=== PATIENT | male | born 1945 | race Caucasian/White ===

== ENCOUNTER 2020-10-22 04:29 | Inpatient (IN) | payer MEDICARE, MEDICAID, SELFPAY ==
[2020-10-22] VITALS (97 sets, daily range): BP systolic 72–147; BP diastolic 48–92; PULSE 75–117; RESP 0–33; TEMP 36.7–36.8; O2SAT 90–100; BMI 18.6; BMI 17.2
--- NOTE | 2020-10-22 04:39 | XRR_ITS ---
PROCEDURE INFORMATION: Exam: XR Chest, 1 View Exam date and time: 10/22/2020 4:58 AM Age: 75 years old Clinical indication: Dyspnea; Prior surgery; Surgery date: 6+ months; Surgery type: Heart stents; Additional info: SOB TECHNIQUE: Imaging protocol: XR of the chest Views: 1 view. COMPARISON: No relevant prior studies available. FINDINGS: Lungs: There is a background of centrilobular emphysema and bronchiectasis. Calcified granulomas are seen in the hemithoraces bilaterally. Some subtle ground-glass opacities are seen in the right lung base likely representing pulmonary fibrosis. Patch there is dense consolidation seen within the left mid and lower hemithorax, findings that may represent pneumonia although underlying soft tissue masses cannot be excluded. Pleural space: Unremarkable. No pleural effusion. No pneumothorax. Heart/Mediastinum: Unremarkable. No cardiomegaly. Bones/joints: Unremarkable. XR/XR chest 1V portable [id number] IMPRESSION: 1. There is a background of centrilobular emphysema and bronchiectasis. Calcified granulomas are seen in the hemithoraces bilaterally. 2. Irregular areas of consolidation seen in the left mid and lower hemithorax, findings that may represent pneumonia although underlying soft tissue attenuation masses cannot be excluded.
--- NOTE | 2020-10-22 04:40 | ECG_ITS ---
[facility] Test Date: 2020-10-22 Pat Name: Jacinto Choe Department: Room: Gender: Male [employer]: : 1945 Requested By: Niels Flores Order Number: [id number] Reading MD: EVAN ACEVEDO Measurements Intervals Harts Rate: 94 P: 81 WY: 200 QRS: 55 QRSD: 102 T: 129 QT: 358 QTc: 450 Interpretive Statements SINUS RHYTHM ST DEVIATION AND MODERATE T-WAVE ABNORMALITY, CONSIDER LATERAL ISCHEMIA [-0.1+ mV T WAVE IN I/aVL/V5/V6] Compared to ECG 11/10/2016 07:30:37 Sinus bradycardia no longer present First degree AV block no longer present Myocardial infarct finding no longer present T-wave abnormality still present Possible ischemia still present Electronically Signed On 10-22-2020 20:13:57 LAWYER by EVAN ACEVEDO [id number] f
[2020-10-22] MEDS: FUROsemide 10 mg/mL SDV 10mL 60 MG IVP (04:44)
[2020-10-22] MEDS: nitroglycerin 1 gm/inch oint Pkt 0.5 INCH TOPICAL (04:45)
--- NOTE | 2020-10-22 04:46 | ED_ITS ---
HPI - SOB/Dyspnea General: Chief Complaint: Shortness of Breath/Dyspnea Stated Complaint: Nosebleed/Coughing up Blood Time Seen by Provider: 10/22/20 04:31 History of Present Illness: HPI Narrative: 75-year-old male with a history of coronary disease presents with acute onset of shortness of breath. He notes he has been coughing, but has had no fever. This is worsened over a couple of days. He believes his nose began to bleed last evening around 10 PM, and got worse. There is no nosebleeding now. He is coughing up some bright red blood. He notes that his chest has been rattly. He also notes that his feet have been more swollen lately. MD elicited complaint: shortness of breath and cough Pertinent past history: other Onset (ago): day(s) Timing: constant and progressively worsening Severity: moderate Exacerbating factors: exertion and movement Relieving factors: nothing Known history of: other Associated symptoms: Reports chest congestion, chest pain, cough and hemoptysis; Deny diaphoresis, dizziness, fever(s), nausea or vomiting Treatment prior to arrival: oxygen Review of Systems Const: Denies: fever(s) or diaphoresis Eyes: Denies: change in vision ENMT: Reports: epistaxis, post nasal drip and sinus pain; Denies: odynophagia or swelling of lips/tongue Card: Reports: chest pain Resp: Reports: hemoptysis and chest congestion GI: Denies: nausea or vomiting : Denies: difficulty urinating, dysuria or hematuria Musc: Denies: neck pain Skin/Breast: Denies: rash or erythema Neuro: Denies: headache(s) or dizziness Psych: Denies: anxiety PFSH ED PFSH: Medical History (Updated 10/22/20 @ 06:04 by Niels Godinez DO) Alcohol abuse COPD (chronic obstructive pulmonary disease) Dyslipidemia HTN (hypertension) Myocardial infarction Being managed medically, November 08, [address] 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: [employer] Physical Exam Const: GENERAL APPEARANCE: well developed ORIENTATION/CONSCIOUSNESS: Yes oriented to person, Yes oriented to place and Yes oriented to time HENMT: COMMON NORMALS: normocephalic and external ears normal HEAD & SCALP: normocephalic FACE & SINUS: normal facial exam NOSE: Nasal discharge present bloody (thin. ) and Epistaxis present (currently stopped) EXTERNAL EAR: Yes external ears normal MOUTH: tongue normal Eye: COMMON NORMALS: Equal, round and reactive pupils present, EOMs intact bilaterally and conjunctivae normal EYELID: eyelids normal CONJUNCTIVA: Yes conjunctivae normal PUPIL: Yes Equal, round and reactive pupils present Neck/C-Spine: GENERAL: No tracheal deviation Chest: COMMONS NORMALS: normal inspection of the chest CHEST: No tenderness Resp: EFFORT & INSPECTION: Yes tachypneic, Yes respiratory distress, No retractions, No uses accessory muscles and No tracheal deviation AUSCULTATION: rales (profound) bilateral, no rhonchi, no wheezes and lung sounds not diminished Cardio: COMMON NORMALS: regular rate and regular rhythm RATE: regular rate RHYTHM: regular rhythm HEART SOUNDS: no murmurs PERIPHERAL PULSES: radial pulses present GI: INSPECTION: No abdominal distension AUSCULTATION: No Hyperactive bowel sounds present and No Hypoactive bowel sounds present PALPATION: No Guarding due to palpation present (GI) and No Rigid due to palpation PERCUSSION: no dullness to percussion and no tympanic to percussion Neuro: SENSORIUM/ORIENTATION: Yes oriented to person, Yes oriented to place and Yes oriented to time Psych: COMMON NORMALS: mental status grossly normal Skin: COMMON NORMALS: no rashes or lesions noted GENERAL SKIN EXAM: no rashes or lesions noted Course Consultations: Consultation #1: hubert Time: 06:01 Vital Signs: Vital signs: Vital Signs Temperature 98.0 F 10/22/20 04:38 Pulse Rate 117 H 10/22/20 05:57 Respiratory Rate 27 H 10/22/20 05:57 Blood Pressure 137/84 10/22/20 05:57 Pulse Oximetry 93 10/22/20 05:57 MDM - SOB/Dyspnea MDM Narrative: Medical decision making narrative: 75-year-old male presents in respiratory failure. He has tachypnea, low O2 sat on 4 L. He is improved on 10 L oxygen mask. Heart rates 100-1 10. Blood pressure 134/88. Clinically he sounds wet on exam. He has a dense left lower lobe pneumonia by chest x-ray. White blood cell count 12. His lactic acid is minimally elevated, his hemoglobin is 8.3. CTA read is pending. He will go to the ICU for hypoxic respiratory failure and pneumonia. He was not given fluids, as clinically he was fluid overloaded. He did receive Rocephin and Zithromax. Lab Data: Labs: Lab Results 10/22/20 10/22/20 10/22/20 Range/Units 04:39 04:40 04:40 WBC 12.2 H (4.0-10.0) 10^3/ uL RBC 3.02 L (4.1-5.3) 10^6/u L Hgb 8.3 L (11.7-16.6) g/dL Hct 26.4 L (42.0-52.0) % MCV 87.4 (80-94) fL MCH 27.5 L (28.0-34.0) pg MCHC 31.4 (30.0-36.0) g/dL RDW 16.7 H (12.1-15.1) % Plt Count 466 H (130-400) 10^3/c mm MPV 8.9 (7.4-10.4) fL Neut % (Auto) 73.7 % Lymph % (Auto) 19.2 % [place] % (Auto) 6.2 % Eos % (Auto) 0.1 % Baso % (Auto) 0.3 % Neut # (Auto) 9.01 H (1.8-7.7) 10^3/u L Lymph # (Auto) 2.4 (0.8-4.8) 10^3/u L [place] # (Auto) 0.8 (0.2-0.9) 10^3/u L Eos # (Auto) 0.0 (0.0-0.8) 10^3/u L Baso # (Auto) 0.0 (0.0-0.1) 10^3/u L Nucleated RBC % (a uto) 0 % Nucleated RBCs # 0.0 /100WBC D-Dimer 1.25 H (0-0.59) ug/mIFE U Specimen Type Arterial Sample Site Brachial, right ABG pH 7.40 (7.35-7.45) ABG pCO2 34.6 L (35-45) mmHg ABG pO2 69.5 L (80.0-100.0) mmH g ABG HCO3 21.4 L (22-26) mmol/L ABG Base Excess -3.0 L (-2.0-2.0) mmol/ L Bogdan Test N/a Hematocrit 25.7 L (42-52) % Hgb O2 Saturation 91.1 L (95-100) % Carboxyhemoglobin 2.6 (0.4-20.1) %THgb Methemoglobin 0.9 (0.4-1.5) % Total Hemoglobin 8.4 L (14-18) g/dL O2 Delivery Device Oxy mask O2 Liters/Min 15.0 % Finishing Manager ID Harkr Sodium (136-145) mmol/L Potassium (3.5-5.1) mmol/L Chloride (98-107) mmol/L Carbon Dioxide (22-29) mmol/L Anion Gap (5-19) BUN (8-23) mg/dL Creatinine (0.7-1.2) mg/dL GFR Calculation Glucose (65-115) mg/dL Calculated Osmolal ity (285-295) mOsm/k g Lactic Acid (0.5-2.2) mmol/L Calcium (8.5-10.5) mg/dL Total Bilirubin (0.15-1.2) mg/dL AST (0-40) U/L ALT (0-41) U/L Alkaline Phosphata se (40-130) IU/L Troponin T Baselin e (0-15) ng/L NT-Pro-B Natriuret Pep (0-450) pg/mL Total Protein (6.6-8.7) g/dL Albumin (3.5-5.2) g/dL Globulin (1.3-4.6) g/dL SARS-CoV-2 Ag (Rap id) (Negative) 10/22/20 10/22/20 10/22/20 Range/Units 04:40 04:40 04:40 WBC (4.0-10.0) 10^3/ uL RBC (4.1-5.3) 10^6/u L Hgb (11.7-16.6) g/dL Hct (42.0-52.0) % MCV (80-94) fL MCH (28.0-34.0) pg MCHC (30.0-36.0) g/dL RDW (12.1-15.1) % Plt Count (130-400) 10^3/c mm MPV (7.4-10.4) fL Neut % (Auto) % Lymph % (Auto) % [place] % (Auto) % Eos % (Auto) % Baso % (Auto) % Neut # (Auto) (1.8-7.7) 10^3/u L Lymph # (Auto) (0.8-4.8) 10^3/u L [place] # (Auto) (0.2-0.9) 10^3/u L Eos # (Auto) (0.0-0.8) 10^3/u L Baso # (Auto) (0.0-0.1) 10^3/u L Nucleated RBC % (a uto) % Nucleated RBCs # /100WBC D-Dimer (0-0.59) ug/mIFE U Specimen Type Sample Site ABG pH (7.35-7.45) ABG pCO2 (35-45) mmHg ABG pO2 (80.0-100.0) mmH g ABG HCO3 (22-26) mmol/L ABG Base Excess (-2.0-2.0) mmol/ L Bogdan Test Hematocrit (42-52) % Hgb O2 Saturation (95-100) % Carboxyhemoglobin (0.4-20.1) %THgb Methemoglobin (0.4-1.5) % Total Hemoglobin (14-18) g/dL O2 Delivery Device O2 Liters/Min % Finishing Manager ID Sodium 128 L (136-145) mmol/L Potassium 4.4 (3.5-5.1) mmol/L Chloride 96 L (98-107) mmol/L Carbon Dioxide 23 (22-29) mmol/L Anion Gap 13.4 (5-19) BUN 6 L (8-23) mg/dL Creatinine 0.5 L (0.7-1.2) mg/dL GFR Calculation Not Reportable Glucose 156 H (65-115) mg/dL Calculated Osmolal ity 267 L (285-295) mOsm/k g Lactic Acid 2.3 H (0.5-2.2) mmol/L Calcium 8.6 (8.5-10.5) mg/dL Total Bilirubin 0.3 (0.15-1.2) mg/dL AST 16 (0-40) U/L ALT 11 (0-41) U/L Alkaline Phosphata se 147 H (40-130) IU/L Troponin T Baselin e 93 H (0-15) ng/L NT-Pro-B Natriuret Pep 2593 H (0-450) pg/mL Total Protein 6.8 (6.6-8.7) g/dL Albumin 3.0 L (3.5-5.2) g/dL Globulin 3.8 (1.3-4.6) g/dL SARS-CoV-2 Ag (Rap id) (Negative) 10/22/20 Range/Units 05:15 WBC (4.0-10.0) 10^3/ uL RBC (4.1-5.3) 10^6/u L Hgb (11.7-16.6) g/dL Hct (42.0-52.0) % MCV (80-94) fL MCH (28.0-34.0) pg MCHC (30.0-36.0) g/dL RDW (12.1-15.1) % Plt Count (130-400) 10^3/c mm MPV (7.4-10.4) fL Neut % (Auto) % Lymph % (Auto) % [place] % (Auto) % Eos % (Auto) % Baso % (Auto) % Neut # (Auto) (1.8-7.7) 10^3/u L Lymph # (Auto) (0.8-4.8) 10^3/u L [place] # (Auto) (0.2-0.9) 10^3/u L Eos # (Auto) (0.0-0.8) 10^3/u L Baso # (Auto) (0.0-0.1) 10^3/u L Nucleated RBC % (a uto) % Nucleated RBCs # /100WBC D-Dimer (0-0.59) ug/mIFE U Specimen Type Sample Site ABG pH (7.35-7.45) ABG pCO2 (35-45) mmHg ABG pO2 (80.0-100.0) mmH g ABG HCO3 (22-26) mmol/L ABG Base Excess (-2.0-2.0) mmol/ L Bogdan Test Hematocrit (42-52) % Hgb O2 Saturation (95-100) % Carboxyhemoglobin (0.4-20.1) %THgb Methemoglobin (0.4-1.5) % Total Hemoglobin (14-18) g/dL O2 Delivery Device O2 Liters/Min % Finishing Manager ID Sodium (136-145) mmol/L Potassium (3.5-5.1) mmol/L Chloride (98-107) mmol/L Carbon Dioxide (22-29) mmol/L Anion Gap (5-19) BUN (8-23) mg/dL Creatinine (0.7-1.2) mg/dL GFR Calculation Glucose (65-115) mg/dL Calculated Osmolal ity (285-295) mOsm/k g Lactic Acid (0.5-2.2) mmol/L Calcium (8.5-10.5) mg/dL Total Bilirubin (0.15-1.2) mg/dL AST (0-40) U/L ALT (0-41) U/L Alkaline Phosphata se (40-130) IU/L Troponin T Baselin e (0-15) ng/L NT-Pro-B Natriuret Pep (0-450) pg/mL Total Protein (6.6-8.7) g/dL Albumin (3.5-5.2) g/dL Globulin (1.3-4.6) g/dL SARS-CoV-2 Ag (Rap id) Negative (Negative) Discharge Plan Discharge Patient Disposition: Admitted As Inpatient Clinical Impression: Pneumonia Qualifiers: Pneumonia type: due to unspecified organism Laterality: left Lung location: lower lobe of lung Qualified Code(s): J18.9 - Pneumonia, unspecified organism Sepsis Qualifiers: Sepsis type: sepsis due to unspecified organism Sepsis acute organ dysfunction status: with acute organ dysfunction Severe sepsis acute organ dysfunction type: acute respiratory failure Acute respiratory failure type: with hypoxia Severe sepsis shock status: without septic shock Qualified Code(s): A41.9 - Sepsis, unspecified organism Respiratory failure Qualifiers: Chronicity: acute Respiratory failure complication: hypoxia Qualified Code(s): J96.01 - Acute respiratory failure with hypoxia Condition: Stable Coding Level of Care Code ED [employer] [facility] Fwd Exam Comprehensive
[2020-10-22 04:47] LABS: ABG PCO2 34.6 mmHg (35-45); Arterial Blood Gas Hematocrit 25.7 % (42-52); Blood Gas Sample Type Arterial; Carboxyhemoglobin 2.6 %THgb (0.4-20.1); HCO3 ABG 21.4 mmol/L (22-26); HGB O2 Sat 91.1 % (95-100); Methemoglobin 0.9 % (0.4-1.5); PO2 ABG 69.5 mmHg (80.0-100.0); Total Hemoglobin 8.4 g/dL (14-18)
[2020-10-22 04:48] LABS: Blood Gas Operator Identificat HARKR; Blood Gas Sample Site Brachial, right; Oxygen Device OXY MASK
[2020-10-22 04:57] LABS: Basophils % 0.3 %; Eosinophils % 0.1 %; Hematocrit 26.4 % (42.0-52.0); Hemoglobin 8.3 g/dL (11.7-16.6); Lymphocytes # 2.4 10^3/uL (0.8-4.8); Lymphocytes % 19.2 %; Mean Corpuscular HGB Conc 31.4 g/dL (30.0-36.0); Mean Corpuscular Hemoglobin 27.5 pg (28.0-34.0); Mean Corpuscular Volume 87.4 fL (80-94); Mean Platelet Volume 8.9 fL (7.4-10.4); Monocytes # 0.8 10^3/uL (0.2-0.9); Monocytes % 6.2 %; Neutrophils # 9.01 10^3/uL (1.8-7.7); Neutrophils % 73.7 %; Nucleated Red Blood Cells % 0 %; Platelet Count 466 10^3/cmm (130-400); Red Blood Count 3.02 10^6/uL (4.1-5.3); Red Cell Distribution Width 16.7 % (12.1-15.1); White Blood Count 12.2 10^3/uL (4.0-10.0)
[2020-10-22 05:07] LABS: D Dimer 1.25 ug/mIFEU (0-0.59)
[2020-10-22] MEDS: cefTRIAXone 1,000 MG in sodium chloride 0.9% (plus) 50 ML 100 MG IV (05:15)
--- NOTE | 2020-10-22 05:18 | CTR_ITS ---
PROCEDURE INFORMATION: Exam: CT Angiography Chest With Contrast Exam date and time: 10/22/2020 5:30 AM Age: 75 years old Clinical indication: Abnormal findings; Abnormal diagnostic tests; Elevated d-dimer; Dyspnea; Prior surgery; Surgery date: 6+ months; Surgery type: Heart stents; Additional info: SOB, elevated d dimer TECHNIQUE: Imaging protocol: Computed tomographic angiography of the chest with intravenous contrast. 3D rendering (Not supervised by radiologist): MIP and/or 3D reconstructed images were created by the technologist. Radiation optimization: All CT scans at this facility use at least one of these dose optimization techniques: automated exposure control; mA and/or kV adjustment per patient size (includes targeted exams where dose is matched to clinical indication); or iterative reconstruction. Contrast material: OMNI 350; Contrast volume: 95 ml; Contrast route: INTRAVENOUS (IV); COMPARISON: CR (CHEST, ) 10/22/2020 4:45 AM RADIATION DOSE METRICS: Total DLP (mGy-cm): 540.68 FINDINGS: Pulmonary arteries: Normal. No pulmonary emboli. Aorta: Unremarkable. No aortic aneurysm. No aortic dissection. Lungs: Prominent calcifications are seen within the lungs bilaterally compatible calcified granulomas. The largest is seen in the left upper lobe anteriorly measuring 12 mm. There is a background of severe centrilobular emphysema. There is a spiculated soft tissue attenuation mass present within the left upper lobe adjacent to the major fissure measuring 3.6 x 2.8 x 4.0 cm. There is distortion the major fissure, finding that raises additional suspicion for a primary pulmonary malignancy. There is a rounded area area of consolidation seen within the left upper lobe as well measuring 6.9 x 6.4 x 5.2 cm. Although this may represent rounded pneumonia, an underlying pulmonary malignancy cannot be excluded. Pleural space: Reticular and strandy opacities surround the rounded mass likely representing parenchymal and pleural scarring. Ground-glass opacities are seen in the lung bases bilaterally. This likely represents pulmonary fibrosis although superimposed pneumonitis cannot be excluded. Heart: Unremarkable. No cardiomegaly. No pericardial effusion. Lymph nodes: Unremarkable. No enlarged lymph nodes. Gallbladder and bile ducts: Punctate calcifications are seen in the dependent portion of gallbladder compatible with gallstones. Kidneys and ureters: There is hydronephrosis and hydroureter seen on the left. Bones/joints: There is an S-shaped curvature of the axial skeleton. Soft tissues: Unremarkable. CT/CT angio chest PE protcl [id number] IMPRESSION: 1. Severe centrilobular emphysema. 2. There are 2 soft tissue attenuation masses present within the left upper lobe suspicious for pulmonary malignancy. Highly suspicious nodule(s). Consider PET/CT, or tissue sampling.(Reference: Alberto) 3. Diffuse reticular opacities are present within the left hemithorax likely representing combined pleural and parenchymal scarring. Ground-glass opacities are seen in the lower hemithoraces bilaterally likely representing pulmonary fibrosis although superimposed basilar pneumonitis cannot be excluded as well. 4. Left hydronephrosis and hydroureter. 5. Tiny gallstones without evidence of cholecystitis REFERENCES: Alberto Rich, et al. Guidelines for Management of Incidental Pulmonary Nodules Detected on CT Images: From the Fleischner Society 2017. Radiology. 2017;284(1):228-243. Radiation Dose CTDIVOL = (mGy): DLP = 540.68 (mGy-cm)
[2020-10-22 05:19] LABS: Lactic Sepsis W/Reflex 2.3 mmol/L (0.5-2.2)
[2020-10-22 05:20] LABS: Troponin(5th) Baseline 93 ng/L (0-15)
[2020-10-22] MEDS: azithromycin 500 MG in sodium chloride 0.9% 250 ML 250 MG IV (05:22)
[2020-10-22 05:26] LABS: Alanine Aminotransferase 11 U/L (0-41); Alkaline Phosphatase 147 IU/L (40-130); Anion Gap 13.4 (5-19); Aspartate Amino Transferase 16 U/L (0-40); Blood Urea Nitrogen 6 mg/dL (8-23); Calcium 8.6 mg/dL (8.5-10.5); Carbon Dioxide 23 mmol/L (22-29); Chloride 96 mmol/L (98-107); Creatinine Clr Calc Pharmacy 64.4952; Globulin 3.8 g/dL (1.3-4.6); Glucose 156 mg/dL (65-115); NT Pro B Type Natriuretic Pept 2593 pg/mL (0-450); Osmolality Calculated 267 mOsm/kg (285-295); Potassium 4.4 mmol/L (3.5-5.1); Sodium 128 mmol/L (136-145); Total Bilirubin 0.3 mg/dL (0.15-1.2); Total Protein 6.8 g/dL (6.6-8.7)
[2020-10-22 05:43] LABS: SARS Covid-2 Antigen Negative (Negative)
[2020-10-22] MEDS: iohexol 350 mg/mL 100 mL Btl IV (05:52)
--- NOTE | 2020-10-22 05:56 | PM.HP ---
Providers/Chief Complaint Primary Care Provider: Jude Boucher Chief Complaint: nose bleed History of Present Illness Jacinto Choe is a 75 year old male who carries history of established coronary disease, nonoxygen dependent COPD, hypertension, active smoker who presented with chief complaint of hemoptysis and chest pain. Patient is stating that he has been having on and off chest pain on exertion, he describing chest pain is excruciating pain more than 10 associated with orthopnea, PND, shortness of breath, chest pain gets relieved with rest and taking nitro at home. Last 48 hours he has been noticing worsening of his symptoms, he is getting more short of breath, Friday morning he also started noticing hemoptysis and epistaxis. Because of the symptoms he decided to come to the hospital for further evaluation. Diagnostics in the ER revealed tachycardia, tachypnea, hypoxic respiratory failure requiring 10 L oxygen mask, CT chest revealed 3 x 2 x 4 cm mass and another rounded area of consolidation in left upper lobe 6 x 6 x 5 cm. Troponin high no active chest pain EKG is showing T wave inversion lateral leads which is chronic, awaiting second hour troponin, high D-dimer noticed. He received ceftriaxone and azithromycin in the ER and Lasix dose. Review of Systems Const: Reports: chills, body aches, change in appetite, fatigue and malaise; Denies: fever(s) Eyes: Denies: change in vision ENMT: Reports: throat pain and bleeding gums Card: Reports: chest pain, swelling of feet/ankles, dyspnea on exertion and orthopnea Resp: Reports: dyspnea, productive cough and hemoptysis GI: Denies: abdominal pain : Denies: flank pain Musc: Denies: neck pain Skin/Breast: Reports: lesions Neuro: Denies: headache(s) Psych: Denies: anxiety Endo: Denies: polyuria Oliver/Lymph: Denies: easy bruising All/Imm: Denies: urticaria Medications/Allergies Home Medications Medication Instructions Recorded Confirmed Last Taken Type isosorbide mononitrate 30 mg 30 mg PO DAILY #90 tab 12/15/19 05/02/20 Unknown Rx tablet,extended release 24 hr nitroglycerin 0.4 mg sublingual 0.4 mg SUBLINGUAL Q5M PRN 90 Days 12/27/19 05/02/20 Unknown Rx tablet #25 tab aspirin 81 mg tablet,delayed 81 mg PO DAILY 05/01/20 05/02/20 Unknown History release lisinopril 10 mg tablet 5 mg PO DAILY PRN tab 05/02/20 05/02/20 Unknown History Allergies Allergy/AdvReac Type Severity Reaction Status Date / Time No Known Allergies Allergy Unverified 12/13/19 13:28 PFSH Acute PFSH: Medical History Alcohol abuse COPD (chronic obstructive pulmonary disease) Dyslipidemia HTN (hypertension) Myocardial infarction Being managed medically, November 08, [address] 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: [employer] Vitals/I&O/Wt Last Vital Signs Temp 98.0 F 10/22/20 04:38 Pulse 95 10/22/20 05:15 Resp 26 H 10/22/20 05:15 BP 147/84 10/22/20 05:15 Pulse Ox 96 10/22/20 05:15 Weight last 48 hrs Weight 58.967 kg Physical Exam Narrative: EXAM NARRATIVE: Frail elderly male very pleasant to communicate Currently saturating well on 2 L oxygen mask Cachectic malnourished appearance Audible wheezing S1, S2 sinus tachycardia with clinical signs of fluid overload Lower extremity 2+ pitting edema left leg swollen greater than right Abdomen soft nontender bowel sound present Bronchial breath sounds left greater than right adventitious sounds positive with crackles and wheezing Experiencing active hemoptysis, he spat almost 10 to 15 mL in the bucket Awake alert oriented x3 GCS 15 no neurological deficit Appropriate mood and affect Data : 10/22/20 04:40 10/22/20 04:40 Micro: Microbiology 10/22/20 04:40 Blood Culture - Preliminary Blood SPECIMEN COLLECTED 10/22/20 04:40 Blood Culture - Preliminary Blood SPECIMEN COLLECTED A&P Assessment and plan (1) Community acquired pneumonia: Status: Acute (2) Sepsis: Status: Acute (3) Acute and chronic respiratory failure with hypoxia: Status: Acute (4) Hyponatremia: Status: Acute (5) Lung mass: Status: Acute (6) Hemoptysis: Status: Acute (7) Pneumonia: Status: Acute Qualifiers: Laterality: left Lung location: lower lobe of lung Pneumonia type: due to unspecified organism Qualified Code(s): J18.9 - Pneumonia, unspecified organism (8) Sepsis: Status: Acute Qualifiers: Acute respiratory failure type: with hypoxia Sepsis acute organ dysfunction status: with acute organ dysfunction Sepsis type: sepsis due to unspecified organism Severe sepsis acute organ dysfunction type: acute respiratory failure Severe sepsis shock status: without septic shock Qualified Code(s): A41.9 - Sepsis, unspecified organism; R65.20 - Severe sepsis without septic shock; J96.01 - Acute respiratory failure with hypoxia (9) Respiratory failure: Status: Acute Qualifiers: Chronicity: acute Respiratory failure complication: hypoxia Qualified Code(s): J96.01 - Acute respiratory failure with hypoxia (10) Tobacco abuse: Status: Acute Additional A&P Information Active hemoptysis Cachectic appearance, malnourished, concern for malignancy patient smokes 1 pack/day, spiculated mass seen, postobstructive pneumonia I would start him on vancomycin and Zosyn considering emphysematous severe COPD changes of lung parenchyma DuoNeb Avoid anticoagulants Will need histopathological diagnosis bronchoscopy and bronchoalveolar lavage for active complaints Sepsis due to community-acquired pneumonia Sepsis criteria met with leukocytosis, lactic acidemia, tachypnea, tachycardia Would use vancomycin and Zosyn considering emphysematous severe COPD lung parenchyma and concern for lung cancer We will check Legionella and urine antigen Acute hypoxic respiratory failure Requiring 10 L oxygen mask Active hemoptysis with pneumonia and lung mass has high risk of mortality morbidity Currently not complaining of active chest pain, no active. Respiratory sensory muscle, would prefer to monitor in ICU Congestive heart failure exacerbation Has orthopnea, PND clinical signs of fluid overload, would use Lasix IV every 12 Echo in the morning Abnormal D-dimer and troponin Patient has severe coronary artery disease history not a candidate for anticoagulation due to hemoptysis Previously he was managed medically for severe calcified coronary artery disease No PE identified on CTA chest I believe high D-dimer secondary to malignancy Hyponatremia My suspicion is high for squamous cell cancer which can present with hemoptysis spiculated mass and hyponatremia Clinically he is fluid overloaded, continue Lasix Full code N.p.o. DVT prophylaxis SCDs Attestations Medical Necessity Statement*: Anticipating stay in the hospital course more than 2 midnights because of hypoxic respiratory failure CHF exacerbation, pneumonia and malignancy, hemoptysis Time Spent in Patient Care: (>than 50% of time spent in counselling and/or direct pt care on unit). 50mins Coding Level of Care Code Acute Desk Monitor for g Fwd Diagnoses Community acquired pneumonia J18.9 Sepsis A41.9 Acute and chronic respiratory failure with hypoxia J96.21 Hyponatremia E87.1 Lung mass R91.8 Hemoptysis R04.2 Pneumonia J18.9 Laterality: left Lung location: lower lobe of lung Pneumonia type: due to unspecified organism Sepsis A41.9; R65.20; J96.01 Acute respiratory failure type: with hypoxia Sepsis acute organ dysfunction status: with acute organ dysfunction Sepsis type: sepsis due to unspecified organism Severe sepsis acute organ dysfunction type: acute respiratory failure Severe sepsis shock status: without septic shock Respiratory failure J96.01 Chronicity: acute Respiratory failure complication: hypoxia Tobacco abuse Z72.0
[2020-10-22 06:40] LABS: Reflex Lactate Order REFLEX LACTIC ORDERD
--- NOTE | 2020-10-22 06:40 | ECG_ITS ---
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
--- NOTE | 2020-10-22 07:21 | PC.NURSE ---
To ICU 0710 via stretcher by RAMÍREZ Null. VSS, AAOx3, oxymask 10L on. Dried blood to nares and lips.
--- NOTE | 2020-10-22 07:23 | USCV_ITS ---
Jacinto Choe Age: 75 Gender: M : 1945 Exam Date: 10/22/2020 09:19 Ordering Phys: Alfred Fabian MD Technologist: Lashon Frias [place] [facility] [place]: [place] BP: 114 / 67 HR: 80 Rhythm: Sinus Technical Quality: Fair MEASUREMENTS (Male / Female) Normal Values 2D ECHO LV Diastolic Diameter PLAX 4.5 cm 4.2 - 5.9 / 3.9 - 5.3 cm LV Systolic Diameter PLAX 2.8 cm LV Chamber Size 4.3 cm IVS Diastolic Thickness 1.3 cm 0.6 - 1.0 / 0.6 - 0.9 cm IVS Systolic Thickness 1.8 cm LVPW Diastolic Thickness 1.0 cm 0.6 - 1.0 / 0.6 - 0.9 cm LVPW Systolic Thickness 1.3 cm RV Chamber Size 2.8 cm LVOT Diameter 2.1 cm LV Ejection Fraction MOD 2C 30.5 % LV Ejection Fraction 2C AL 28.9 % LA Diameter 3.5 cm LA Width 2.6 cm LA Height 5.4 cm RA Width 2.9 cm RA Height 4.8 cm Aorta at Sinotubular Diameter 3.0 cm M-MODE LV Diastolic Diameter MM 4.9 cm 4.2 - 5.9 / 3.9 - 5.3 cm LV Systolic Diameter MM 3.8 cm LV Ejection Fraction MM Teich 47.1 % IVS Diastolic Thickness MM 0.6 cm 0.6 - 1.0 / 0.6 - 0.9 cm IVS Systolic Thickness MM 0.9 cm LVPW Diastolic Thickness MM 1.0 cm 0.6 - 1.0 / 0.6 - 0.9 cm LVPW Systolic Thickness MM 1.7 cm Aortic Annulus Diameter 3.4 cm LA Ao Ratio MM 1.2 MV E Point Septal Separation 1.3 cm DOPPLER AV Peak Velocity 120.0 cm/s LVOT Peak Velocity 91.0 cm/s AV Area Cont Eq vti 2.5 cm squared AV Area Cont Eq pk 2.6 cm squared MV Peak Velocity 110.0 cm/s MV Area PHT 4.8 cm squared MV E' Velocity 111.0 cm/s TV Peak E Velocity 32.0 cm/s Right Atrial Pressure 8.0 mmHg PV Peak Velocity 73.0 cm/s RV Acceleration Time 0.1 s RV Ejection Time 0.3 s RV AcT/ET 0.3 FINDINGS Left Ventricle Normal left ventricular cavity size. Severely decreased left ventricular systolic function. Left ventricular ejection fraction is estimated at 35 %. There is global hypokinesis with regional mid to distal anterior, apical and distal lateral wall akinesis. The presence of atrial fibrillation diastolic function cannot be assessed accurately. Right Ventricle The right ventricle is normal in size and function. RVSP could not be calculated due to incomplete tricuspid regurgitation velocity profile. Right Atrium The right atrium is normal in size. Left Atrium The left atrium is normal in size. Mitral Valve Structurally normal mitral valve without significant stenosis or prolapse. There is no mitral regurgitation. Aortic Valve Moderate aortic valve calcification. No aortic valve stenosis. No aortic valve regurgitation. Tricuspid Valve Structurally normal tricuspid valve without significant stenosis or regurgitation. Pulmonary artery systolic pressure is normal. Pulmonic Valve Structurally normal pulmonic valve without significant stenosis. There is no pulmonic regurgitation. Pericardium Normal pericardium without effusion. Aorta Normal ascending aorta dimension. CONCLUSIONS 1-Normal left ventricular cavity size. Severely decreased left ventricular systolic function. Left ventricular ejection fraction is estimated at 35 %. There is global hypokinesis with regional mid to distal anterior, apical and distal lateral wall akinesis. The presence of atrial fibrillation diastolic function cannot be assessed accurately. 2-There is no pericardial effusion. 3-No significant valve abnormalities. 4-Right atrial pressure is around 5 mm of mercury. 5-There are no prior echocardiogram studies to compare. Alfred Paris MD (Electronically Signed) Final Date: 22 October 2020 17:09 S
[2020-10-22] MEDS: isosorbide mononitrate ER 30 mg Tablet PO (08:37)
[2020-10-22] MEDS: vancomycin 1,000 MG in sodium chloride 0.9% 250 ML 250 MG IV (08:37)
[2020-10-22] MEDS: potassium chloride ER 20 mEq Tablet PO (08:37)
[2020-10-22] MEDS: FUROsemide 10 mg/mL SDV 4mL 40 MG IVP (08:38)
[2020-10-22] MEDS: piperacillin-tazobactam 3.375 GM in sodium chloride 0.9% (plus) 50 ML IV ×2 (10:05→19:02)
[2020-10-22 11:37] LABS: Troponin 5 6HR 155.7 ng/L (0-15)
[2020-10-22 11:38] LABS: Troponin 5 6HR Delta 62.7 ng/L (0-12)
--- NOTE | 2020-10-22 14:00 | PC.NURSE ---
Daughter Tricia Tijerina [phone] called for update. Update given. Pneumonia, lung masses, possible cancer.
--- NOTE | 2020-10-22 15:26 | P.EN_ITS ---
Event Note Event Note: Follow Up from AM admission note. 75-year-old with a past medical history of alcoholism, coronary artery disease hx of stent with prior cardiac cath in 2016 during which time right coronary artery could not be accessed due to a large thrombus near the ostium of the vessel, prior LAD stents were noted and patent,LCx mild disease, wall motion abnormality was in RCA distribution, chronic systolic heart failure with last known EF of 45 % in 2016, hypertension, hypercholesterolemia, heavy tobacco abuse and chronic obstructive pulmonary disease who presented to the hospital with chest pain, hemptysis and epistaxis. This was assocated with increasing respiratory distress. His epistaxis had resolved prior to arrival. laboratory workup on arrival showed a WBC of 12.2, hemoglobin of 8.3, hematocrit of 26.4 and a platelet count of 466. Sodium 128, potassium 4.4, chloride 96, bicarb 23, BUN 6 and creatinine is 0.5. Lactic Acid of 2.1. AST of 16, ALT 11, alkaline phosphatase of 147. troponin T baseline of 93, 117 at 1:20 a.m., 6 hour at 155. ProBNP was elevated at 2593. COVID-19 rapid antigen. negative. D-dimer was elevated 1.25. Arterial blood gas showed a pH of 7.40, P CO2 of 34.6, PO2 of 69.5 and a bicarb of 21.4. This was on 15 L of O2 via simple mask. Chest x-ray showed central lobar emphysema, bronchiectasis and calcified granulomas bilaterally. Irregular areas of consolidation were seen left mid and lower hemithorax. Findings may represent pneumonia versus underlying soft tissue attenuation masses which could not be entirely excluded. CT angio of chest was then performed which showed severe centrilobular emphysema in addition to two soft tissue attenuation masses present in the left upper lobe suspicious for pulmonary malignancy. Diffuse reticular opacities were present within the left hemithorax likely representing combined pleural in peripheral scarring, ground-glass opacities were seen and lower hemithorax bilaterally representing pulmonary fibrosis versus superimposed basilar pneumonitis. Left- sided hydroureter and hydronephrosis is seen. In ER patient was given ceftriaxone 1g IV x 1, Azithromycin 500 mg IV x 1, Lasix 60 mg IVP x 1 and Nitropaste 0.5 inch topical. Blood culture were drawn. COVID 19 PCR was sent Upon admission to hospital his antibiotics were change to Vancomycin pharmacy to dose and zosyn 3.375g IV q8hr, Lasix 40 mg IVP q12hr and imdur 30 mg PO daily. He did not have any further episode of chest pain however was noted to have hypotensive episode of SBP < 70. Required 250cc bolus. Prior to this he was noted to have over 2L urine output since arrival. Had a lengthy discussion with patient with nurse at bedside regarding current active medical issues primary the possibility of pulmonary malignancy and NSTEMI. Advised him to further investigate this he would require biopsy of these lesions to obtain a definite diagnoses in addition to cardiology consult and catherization. He stated due to his age, frailty and quality of life he would not want to have biopsies and or any invasive procedures. Additionally code status was discussed which patient repeated no CPR or Life support/MV. Code status was changed to A.N.D Patient was alert and and oriented and verbalized understanding of this. In light of this pulmonary and cardiology were not consulted. Will attempt medical management. Will hold Lasix due to hypotensive episodes. Continue bronchodilatory treatments, add pulmicort 0.5 mg INH BID, add solu-medrol 80 mg IV Q8hr, continue broad specturm anitbiotics, follow upon culture results. No further bleeding since arrival however will repeat H/H, transfuse if < 8.0. Follow up on ECHO, D/c nitro paste, nitrobid prn for chest pain, no asa, plavix or heparin due to epistaxis/hemoptysis.Repeat CBC/CMP/Procalcitonin, ABG, Chest x-ray in AM. Will have further discussion regarding hospice/palliative care consult.
[2020-10-22 16:41] LABS: Hematocrit 26.1 % (42.0-52.0); Hemoglobin 8.2 g/dL (11.7-16.6)
--- NOTE | 2020-10-22 17:15 | PC.NURSE ---
Hemoptysis Pt coughing up blood, says something broke loose in nose. Small amount of blood in nares. Blood is fresh dark blood. Doesn't look arterial. Patient here for hemoptysis. Approximately 5-10 ml total.
[2020-10-22] MEDS: ipratropium-albuterol 3 mL Neb INHALATION (19:50)
[2020-10-22] MEDS: budesonide 0.5 mg/2 mL Neb INHALATION (19:50)
[2020-10-23] VITALS (80 sets, daily range): BP systolic 80–128; BP diastolic 45–83; PULSE 78–105; RESP 3–27; TEMP 36.4–37.7; O2SAT 92–100
[2020-10-23] MEDS: piperacillin-tazobactam 3.375 GM in sodium chloride 0.9% (plus) 50 ML IV ×3 (00:37→18:06)
[2020-10-23] MEDS: vancomycin 1,000 MG in sodium chloride 0.9% 250 ML 250 MG IV ×2 (03:03→21:54)
[2020-10-23 05:48] LABS: Lactate (Lactic Acid level) 1.3 mmol/L (0.5-2.2)
[2020-10-23 06:00] LABS: Procalcitonin 0.25 ng/mL (0-0.5)
--- NOTE | 2020-10-23 07:00 | XR_ITS ---
WS: [id number] XR chest 1V portable [id number] REASON FOR EXAM: hypoxia FINDINGS: Compared to the examination of 10/22/2020, the large complex left mid and lower lung field opacity is decreased in density. There is also decreased density in the right lower lung opacities. Blunting of the right costophrenic angle consistent with scarring or right pleural effusion. No other interval change or new finding is noted. XR/XR chest 1V portable [id number] IMPRESSION: The dramatic change in the lung opacities over 24 hours would suggest they were in part due to pulmonary edema. There is considerable residual density which l ikely represents pneumonitis. Also, of the CT scan of the chest, 10/22/2020, de monstrates a 3 cm spiculated mass in the posterior right upper lobe adjacent to the fissure and more inferiorly and anteriorly there is a large necrotic mass with central and adjacent obstructive pneumonitis.
[2020-10-23] MEDS: budesonide 0.5 mg/2 mL Neb INHALATION ×2 (08:16→20:59)
[2020-10-23] MEDS: ipratropium-albuterol 3 mL Neb INHALATION ×2 (08:16→20:59)
--- NOTE | 2020-10-23 09:22 | PC.CHAP ---
Pastoral Care Encounter/Spiritual Assessment Type of Contact [] Declined reservoir caretaker visit [] Patient/Family/Request visit [] Outpatient visit [] Follow-up visit [] Physician referral [] Code/Alert [] Routine visit [] Staff referral [] Actively dying [] Patient sleeping [] Family support [] [] Out of room [] Palliative care [] [] Receiving care in room [] Pre-surgical visit [] Trauma [] Long length of stay [x] ICU visit [] Other: Relational/Emotional Strength [] Patient feels connected with others/family/visitors/staff [] Distress [] Loneliness/isolation [] Abandonment Spirituality of Patient [] Person of Olive [] Attends Sikh of their [place] [] Believes in Prayer [] Reads Bible or Islam materials [] There are Spiritual issues to be addressed [place] Interventions [x] Prayer [] Active listening [] Non-anxious presence [] Spiritual/emotional support [] Crisis/trauma care [] Spiritual counseling [] Bereavement support [] Provided bereavement packet [] Provided Bible/devotional materials [] Provided toy/stuffed animal, coloring book to patient or family member [] Provided Communion [] Anointing/[place] [] Salvation [x] Completed spiritual assessment [] Other: Impact on Illness or Injury [] Angry [] Fearful [] Anxious [] Often cries [] Exhaustion [] Unable to work [] Unable to attend mandaeism [] Unable to walk/stand [] Unable to read [] Unable to drive [] Unable to eat/drink [] Unable to sleep [] Unable to be with family [] Patient intubated [] Other: Summary Time spent with patient
[2020-10-23] MEDS: potassium chloride ER 20 mEq Tablet PO (09:31)
[2020-10-23] MEDS: isosorbide mononitrate ER 30 mg Tablet PO (09:31)
[2020-10-23 10:50] LABS: Basophils % 0.3 %; Hematocrit 23.3 % (42.0-52.0); Hemoglobin 7.4 g/dL (11.7-16.6); Lymphocytes % 10.2 %; Mean Corpuscular HGB Conc 31.8 g/dL (30.0-36.0); Mean Corpuscular Hemoglobin 27.6 pg (28.0-34.0); Mean Corpuscular Volume 86.9 fL (80-94); Mean Platelet Volume 8.8 fL (7.4-10.4); Monocytes # 0.3 10^3/uL (0.2-0.9); Monocytes % 2.6 %; Neutrophils # 8.75 10^3/uL (1.8-7.7); Neutrophils % 86.1 %; Nucleated Red Blood Cells % 0 %; Platelet Count 404 10^3/cmm (130-400); Red Blood Count 2.68 10^6/uL (4.1-5.3); Red Cell Distribution Width 16.9 % (12.1-15.1); White Blood Count 10.2 10^3/uL (4.0-10.0)
[2020-10-23 10:59] LABS: Blood Urea Nitrogen 17 mg/dL (8-23); Calcium 8.1 mg/dL (8.5-10.5); Carbon Dioxide 23 mmol/L (22-29); Chloride 97 mmol/L (98-107); Glucose 146 mg/dL (65-115); Osmolality Calculated 282 mOsm/kg (285-295); Sodium 134 mmol/L (136-145)
[2020-10-23 11:04] LABS: Anion Gap 18.2 (5-19); Potassium 4.2 mmol/L (3.5-5.1)
--- NOTE | 2020-10-23 13:41 | PC.RESP ---
Smoking Cessation and Pulmonary Rehab packet sent to patient.
--- NOTE | 2020-10-23 13:52 | PM.PN ---
Subjective Subjective: Interval history: 75-year-old with a past medical history of alcoholism, coronary artery disease hx of stent with prior cardiac cath in 2016 during which time right coronary artery could not be accessed due to a large thrombus near the ostium of the vessel, prior LAD stents were noted and patent,LCx mild disease, wall motion abnormality was in RCA distribution, chronic systolic heart failure with last known EF of 45 % in 2016, hypertension, hypercholesterolemia, heavy tobacco abuse and chronic obstructive pulmonary disease who presented to the hospital with chest pain, hemptysis and epistaxis. This was assocated with increasing respiratory distress. His epistaxis had resolved prior to arrival. laboratory workup on arrival showed a WBC of 12.2, hemoglobin of 8.3, hematocrit of 26.4 and a platelet count of 466. Sodium 128, potassium 4.4, chloride 96, bicarb 23, BUN 6 and creatinine is 0.5. Lactic Acid of 2.1. AST of 16, ALT 11, alkaline phosphatase of 147. troponin T baseline of 93, 117 at 1:20 a.m., 6 hour at 155. ProBNP was elevated at 2593. COVID-19 rapid antigen. negative. D-dimer was elevated 1.25. Arterial blood gas showed a pH of 7.40, P CO2 of 34.6, PO2 of 69.5 and a bicarb of 21.4. This was on 15 L of O2 via simple mask. Chest x-ray showed central lobar emphysema, bronchiectasis and calcified granulomas bilaterally. Irregular areas of consolidation were seen left mid and lower hemithorax. Findings may represent pneumonia versus underlying soft tissue attenuation masses which could not be entirely excluded. CT angio of chest was then performed which showed severe centrilobular emphysema in addition to two soft tissue attenuation masses present in the left upper lobe suspicious for pulmonary malignancy. Diffuse reticular opacities were present within the left hemithorax likely representing combined pleural in peripheral scarring, ground-glass opacities were seen and lower hemithorax bilaterally representing pulmonary fibrosis versus superimposed basilar pneumonitis. Left-sided hydroureter and hydronephrosis is seen. In ER patient was given ceftriaxone 1g IV x 1, Azithromycin 500 mg IV x 1, Lasix 60 mg IVP x 1 and Nitropaste 0.5 inch topical. Blood culture were drawn. COVID 19 PCR was sent Upon admission to hospital his antibiotics were change to Vancomycin pharmacy to dose and zosyn 3.375g IV q8hr, Lasix 40 mg IVP q12hr and imdur 30 mg PO daily. He did not have any further episode of chest pain however was noted to have hypotensive episode of SBP < 70. Required 250cc bolus. Prior to this he was noted to have over 2L urine output since arrival. Had a lengthy discussion with patient with nurse at bedside regarding current active medical issues primary the possibility of pulmonary malignancy and NSTEMI. Advised him to further investigate this he would require biopsy of these lesions to obtain a definite diagnoses in addition to cardiology consult and catherization. He stated due to his age, frailty and quality of life he would not want to have biopsies and or any invasive procedures. Additionally code status was discussed which patient repeated no CPR or Life support/MV. Code status was changed to A.N.D Patient was alert and and oriented and verbalized understanding of this. In light of this pulmonary and cardiology were not consulted. On 10/22 patient slightly more confused. Continued to have significant episodes of hemoptysis with clots overnight. Discussed again with him regarding the next steps as noted above. He confirmed again his wishes against any invasive procedures. This was also discussed with patients , daughter and grand-daughter who states he has expressed this to them as well. Per Daughter Lashon ([phone]) patient had mentioned to her his wishes of DNI/DNR should his condition deteriorate as currently in the past. Family agreed with Hospice consult and potential plan for implementation of comfort care services. Would like to obtain information regarding home hospice. In the interim requested to proceed with blood transfusion of 1 unit of PRBC due to a drop in hb to 7.4 and continuation IV fluid and antibiotics until hospice consult and visitations from family members. All members of family verbalized understanding of patients clinical condition and poor prognosis. Medications: Reviewed: Yes Vitals/I&O/Wt Last Vital Signs Temp 97.9 F 10/23/20 08:00 Pulse 91 10/23/20 12:00 Resp 24 H 10/23/20 12:00 BP 114/68 10/23/20 12:00 Pulse Ox 95 10/23/20 12:00 10/22/20 10/23/20 10/23/20 22:59 06:59 14:59 Intake Total 550 / 550 80 / 630 1050 / 1050 Output Total 925 / 3325 200 / 3525 Balance -375 / -2775 -120 / -2895 1050 / 1050 Weight last 48 hrs Weight 54.516 kg Weight 58.967 kg Physical Exam Narrative: EXAM NARRATIVE: General: Frail chronically ill appearing elderly, no distress. HEENT : Grossly unremakable CVS : NSR CHEST : Non-labored respiration on simple mask ABD : Non-distended Ext : No edema Urinary Catheter Management^: Yusuf: Cath Placed During This Visit: yes Reason for Continuing Indwelling Catheter: Accurate Measurement of Urinary Output in Critically Ill Patients Urinary Catheter Date of Insertion: 10/22/20 Urinary Catheter Time of Insertion: 05:57 Data : 10/23/20 10:31 10/23/20 10:31 Micro: Microbiology 10/22/20 04:40 Blood Culture - Preliminary Blood NEGATIVE TO DATE 10/22/20 04:40 Blood Culture - Preliminary Blood NEGATIVE TO DATE 10/22/20 08:57 Legionella Urinary Antigen - Final Urine,Clean Catch 10/22/20 08:57 Bacterial Antigens - Final Urine,Clean Catch A&P Assessment and plan (1) Respiratory failure: Status: Acute Qualifiers: Chronicity: acute Respiratory failure complication: hypoxia Qualified Code(s): J96.01 - Acute respiratory failure with hypoxia (2) Sepsis: Status: Acute Qualifiers: Acute respiratory failure type: with hypoxia Sepsis acute organ dysfunction status: with acute organ dysfunction Sepsis type: sepsis due to unspecified organism Severe sepsis acute organ dysfunction type: acute respiratory failure Severe sepsis shock status: without septic shock Qualified Code(s): A41.9 - Sepsis, unspecified organism; R65.20 - Severe sepsis without septic shock; J96.01 - Acute respiratory failure with hypoxia (3) Pneumonia: Status: Acute Qualifiers: Laterality: left Lung location: lower lobe of lung Pneumonia type: due to unspecified organism Qualified Code(s): J18.9 - Pneumonia, unspecified organism (4) Lung mass: Status: Acute (5) Hemoptysis: Status: Acute (6) Acute and chronic respiratory failure with hypoxia: Status: Acute (7) Tobacco abuse: Status: Acute (8) COPD (chronic obstructive pulmonary disease): Status: Acute (9) HTN (hypertension): Status: Acute (10) Dyslipidemia: Status: Acute (11) Acute on chronic systolic (congestive) heart failure: Status: Acute (12) Severe malnutrition: Status: Acute (13) Acute blood loss anemia: Status: Acute (14) Hyponatremia: Status: Acute (15) Bronchiectasis: Status: Acute Acute Hypoxic Respiratory Failure Recurrent Hemptysis Acute Blood Loss Anemia Acute on Chronic Systolic Heart Failure ( EF 45-> 35%) Non- ST elevation [place] hx of CAD s/p PCI/LAD stent Left Upper Lobe Lung Mass suspicious for Malignancy Left mid/lower lobe consolidative pneumonia Chronic Obstructive pulmonary disease / Bronchiectasis Left-Sided Hydroureteronephrosis Hypertension Hypercholesterolemia Hx of Heavy Tobacco Abuse Severe Malnutrition Adult Failure To Thrive DVT ppx - SCDS Plan: Patient continues to have hemoptysis which is possibly related to ANGI lung mass suspicious for malignancy as well as Bronchiectasis. Hemoglobin decreased from 8.2 to 7.4. Family oked transfusion of 1 unit of PRBC. Refused Pulmonary medicine consult. Refused Bronchoscopy. Continue supplemental o2, Bronchodilatory tx, IV steroids, Procalcitonin 0.25 however possible left sided pneumonia due to consolidative process with basilar pneumonia itis. Infectious process vs Fluid overload. Blood culture x2, Bacterial ag and legionella negative. COVID19 PCR pending. ECHO showed drop in EF to 35% from a prior EF of 45 percent in 2016. HE was given multiple doses of lasix yesterday however they were held due to hypotensive episodes. No further chest pain. Positive troponin suggestive of ACS. Was not able to initiate anticoagulation/antiplatelet therapy. D/w family and refused cardiology consult. Would not consider cardiac catherization. After lengthy discuss of patients current clinical condition and poor prognosis. Family d/w patient and hospice was consulted. Requested to continue above intervention until then so family can visit. Code Status DNI/DNR- > A.N.D Attestations Medical Necessity Statement*: Will require further hospitalization for tranfusion, iv abx, hospice consult Time Spent in Patient Care: Greater than 35 minutes (>than 50% of time spent in counselling and/or direct pt care on unit). Critical Care Time: Critical Care Time (min): 75 Coding Level of Care Code Acute Sanitation Technician for [facility] Fwd Diagnoses Respiratory failure J96.01 Chronicity: acute Respiratory failure complication: hypoxia Sepsis A41.9; R65.20; J96.01 Acute respiratory failure type: with hypoxia Sepsis acute organ dysfunction status: with acute organ dysfunction Sepsis type: sepsis due to unspecified organism Severe sepsis acute organ dysfunction type: acute respiratory failure Severe sepsis shock status: without septic shock Pneumonia J18.9 Laterality: left Lung location: lower lobe of lung Pneumonia type: due to unspecified organism Lung mass R91.8 Hemoptysis R04.2 Acute and chronic respiratory failure with hypoxia J96.21 Tobacco abuse Z72.0 COPD (chronic obstructive pulmonary disease) J44.9 HTN (hypertension) I10 Dyslipidemia E78.5 Acute on chronic systolic (congestive) heart failure I50.23 Severe malnutrition E43 Acute blood loss anemia D62 Hyponatremia E87.1 Bronchiectasis J47.9
[2020-10-23] MEDS: sodium chloride 0.9% (100 ml) 100 ML (18:06)
--- NOTE | 2020-10-23 19:21 | PC.NURSE ---
Report given to RAMÍREZ Gutierrez. Shift summary: pt has rested in bed today. He has been changed from oxymask to Nasal cannula. O2 decreased to 6lpm. He has coughed up blood clots occasionally today. Hemoglobin low, he received 1 unit of PRBC. His Left AC Iv infiltrated with the last bit of blood and he now has a puffy purlple area on the inner aspect of his left AC. New Iv started left forearm. His urine output 300ml today. He stated milk upset his stomach very bad and made him cough too much, milk listed as adverse reaction now.
[2020-10-23 20:07] LABS: Vancomycin Trough 9.6 ug/mL (10-15)
[2020-10-23 20:49] LABS: Coronavirus Lab Test PTC Negative
[2020-10-23] MEDS: acetaminophen 325 mg Tablet PO (22:36)
[2020-10-24] VITALS (27 sets, daily range): BP systolic 110–141; BP diastolic 61–89; PULSE 74–94; RESP 7–24; TEMP 36.4–36.7; O2SAT 93–100
[2020-10-24] MEDS: piperacillin-tazobactam 3.375 GM in sodium chloride 0.9% (plus) 50 ML IV ×2 (01:57→08:31)
[2020-10-24 04:08] LABS: Basophils % 0.2 %; Hematocrit 25.8 % (42.0-52.0); Hemoglobin 8.5 g/dL (11.7-16.6); Lymphocytes # 0.8 10^3/uL (0.8-4.8); Lymphocytes % 6.5 %; Mean Corpuscular HGB Conc 32.9 g/dL (30.0-36.0); Mean Corpuscular Hemoglobin 28.4 pg (28.0-34.0); Mean Corpuscular Volume 86.3 fL (80-94); Mean Platelet Volume 8.7 fL (7.4-10.4); Monocytes # 0.4 10^3/uL (0.2-0.9); Monocytes % 2.9 %; Neutrophils # 11.24 10^3/uL (1.8-7.7); Neutrophils % 89.5 %; Nucleated Red Blood Cells % 0 %; Platelet Count 376 10^3/cmm (130-400); Red Blood Count 2.99 10^6/uL (4.1-5.3); Red Cell Distribution Width 16.3 % (12.1-15.1); White Blood Count 12.6 10^3/uL (4.0-10.0)
[2020-10-24 04:39] LABS: Alanine Aminotransferase 10 U/L (0-41); Albumin Level 2.9 g/dL (3.5-5.2); Alkaline Phosphatase 109 IU/L (40-130); Aspartate Amino Transferase 17 U/L (0-40); Blood Urea Nitrogen 21 mg/dL (8-23); Calcium 8.5 mg/dL (8.5-10.5); Carbon Dioxide 22 mmol/L (22-29); Chloride 100 mmol/L (98-107); Globulin 3.5 g/dL (1.3-4.6); Glucose 137 mg/dL (65-115); Osmolality Calculated 281 mOsm/kg (285-295); Sodium 133 mmol/L (136-145); Total Bilirubin 0.4 mg/dL (0.15-1.2); Total Protein 6.4 g/dL (6.6-8.7)
[2020-10-24] MEDS: ipratropium-albuterol 3 mL Neb INHALATION (07:30)
[2020-10-24] MEDS: budesonide 0.5 mg/2 mL Neb INHALATION (07:30)
[2020-10-24] MEDS: isosorbide mononitrate ER 30 mg Tablet PO (08:32)
[2020-10-24] MEDS: potassium chloride ER 20 mEq Tablet PO (08:32)
[2020-10-24] MEDS: vancomycin 1,000 MG in sodium chloride 0.9% 250 ML 250 MG IV (08:32)
--- NOTE | 2020-10-24 08:44 | PC.CHAP ---
Pastoral Care Encounter/Spiritual Assessment Type of Contact [] Declined club waiter/waitress visit [] Patient/Family/Request visit [] Outpatient visit [] Follow-up visit [] Physician referral [] Code/Alert [] Routine visit [] Staff referral [] Actively dying [] Patient sleeping [] Family support [] [] Out of room [] Palliative care [] [] Receiving care in room [] Pre-surgical visit [] Trauma [] Long length of stay [x] ICU visit [] Other: Relational/Emotional Strength [] Patient feels connected with others/family/visitors/staff [] Distress [] Loneliness/isolation [] Abandonment Spirituality of Patient [] Person of Olive [] Attends Sikhism of their Olive [] Believes in Prayer [] Reads Bible or Holiness materials [] There are Spiritual issues to be addressed Woven Paper Hat Mender Interventions [x] Prayer [] Active listening [] Non-anxious presence [] Spiritual/emotional support [] Crisis/trauma care [] Spiritual counseling [] Bereavement support [] Provided bereavement packet [] Provided Bible/devotional materials [] Provided toy/stuffed animal, coloring book to patient or family member [] Provided Communion [] Anointing/[place] [] Salvation [x] Completed spiritual assessment [] Other: Impact on Illness or Injury [] Angry [] Fearful [] Anxious [] Often cries [] Exhaustion [] Unable to work [] Unable to attend confucianist [] Unable to walk/stand [] Unable to read [] Unable to drive [] Unable to eat/drink [] Unable to sleep [] Unable to be with family [] Patient intubated [] Other: Summary patient setting up eating... improvement Time spent with patient
--- NOTE | 2020-10-24 15:22 | PM.PN ---
Subjective Subjective: Interval history: Hospital Course 75-year-old with a past medical history of alcoholism, coronary artery disease hx of stent with prior cardiac cath in 2016 during which time right coronary artery could not be accessed due to a large thrombus near the ostium of the vessel, prior LAD stents were noted and patent,LCx mild disease, wall motion abnormality was in RCA distribution, chronic systolic heart failure with last known EF of 45 % in 2016, hypertension, hypercholesterolemia, heavy tobacco abuse and chronic obstructive pulmonary disease who presented to the hospital with chest pain, hemptysis and epistaxis. This was assocated with increasing respiratory distress. His epistaxis had resolved prior to arrival. laboratory workup on arrival showed a WBC of 12.2, hemoglobin of 8.3, hematocrit of 26.4 and a platelet count of 466. Sodium 128, potassium 4.4, chloride 96, bicarb 23, BUN 6 and creatinine is 0.5. Lactic Acid of 2.1. AST of 16, ALT 11, alkaline phosphatase of 147. troponin T baseline of 93, 117 at 1:20 a.m., 6 hour at 155. ProBNP was elevated at 2593. COVID-19 rapid antigen. negative. D-dimer was elevated 1.25. Arterial blood gas showed a pH of 7.40, P CO2 of 34.6, PO2 of 69.5 and a bicarb of 21.4. This was on 15 L of O2 via simple mask. Chest x-ray showed central lobar emphysema, bronchiectasis and calcified granulomas bilaterally. Irregular areas of consolidation were seen left mid and lower hemithorax. Findings may represent pneumonia versus underlying soft tissue attenuation masses which could not be entirely excluded. CT angio of chest was then performed which showed severe centrilobular emphysema in addition to two soft tissue attenuation masses present in the left upper lobe suspicious for pulmonary malignancy. Diffuse reticular opacities were present within the left hemithorax likely representing combined pleural in peripheral scarring, ground-glass opacities were seen and lower hemithorax bilaterally representing pulmonary fibrosis versus superimposed basilar pneumonitis. Left-sided hydroureter and hydronephrosis is seen. In ER patient was given ceftriaxone 1g IV x 1, Azithromycin 500 mg IV x 1, Lasix 60 mg IVP x 1 and Nitropaste 0.5 inch topical. Blood culture were drawn. COVID 19 PCR was sent Upon admission to hospital his antibiotics were change to Vancomycin pharmacy to dose and zosyn 3.375g IV q8hr, Lasix 40 mg IVP q12hr and imdur 30 mg PO daily. He did not have any further episode of chest pain however was noted to have hypotensive episode of SBP < 70. Required 250cc bolus. Prior to this he was noted to have over 2L urine output since arrival. Had a lengthy discussion with patient with nurse at bedside regarding current active medical issues primary the possibility of pulmonary malignancy and NSTEMI. Advised him to further investigate this he would require biopsy of these lesions to obtain a definite diagnoses in addition to cardiology consult and catherization. He stated due to his age, frailty and quality of life he would not want to have biopsies and or any invasive procedures. Additionally code status was discussed which patient repeated no CPR or Life support/MV. Code status was changed to A.N.D Patient was alert and and oriented and verbalized understanding of this. In light of this pulmonary and cardiology were not consulted. On 10/22 patient slightly more confused. Continued to have significant episodes of hemoptysis with clots overnight. Discussed again with him regarding the next steps as noted above. He confirmed again his wishes against any invasive procedures. This was also discussed with patients , daughter and grand-daughter who states he has expressed this to them as well. Per Daughter Lashon ([phone]) patient had mentioned to her his wishes of DNI/DNR should his condition deteriorate as currently in the past. Family agreed with Hospice consult and potential plan for implementation of comfort care services. Would like to obtain information regarding home hospice. In the interim requested to proceed with blood transfusion of 1 unit of PRBC due to a drop in hb to 7.4 and continuation IV fluid and antibiotics until hospice consult and visitations from family members. All members of family verbalized understanding of patients clinical condition and poor prognosis. On 10/24 patient and family signed on to home hospice/comfort care. Subjective Unchanged overnight. Continued to have hemoptysis however decrease frequency of episodes. Medications: Reviewed: Yes Vitals/I&O/Wt Last Vital Signs Temp 97.8 F 10/24/20 07:00 Pulse 85 10/24/20 15:00 Resp 17 10/24/20 15:00 BP 141/81 10/24/20 15:00 Pulse Ox 96 10/24/20 15:00 10/24/20 10/24/20 10/24/20 06:59 14:59 22:59 Intake Total 780 / 3430 660 / 660 Output Total 275 / 725 Balance 505 / 2705 660 / 660 Physical Exam Narrative: EXAM NARRATIVE: General: Frail chronically ill appearing elderly, no distress. HEENT : Grossly unremakable CVS : NSR CHEST : Non-labored respiration on simple mask ABD : Non-distended Ext : No edema Urinary Catheter Management^: Yusuf: Cath Placed During This Visit: yes Reason for Continuing Indwelling Catheter: Accurate Measurement of Urinary Output in Critically Ill Patients Urinary Catheter Date of Insertion: 10/22/20 Urinary Catheter Time of Insertion: 05:57 Data : 10/24/20 03:07 10/24/20 03:07 A&P Assessment and plan (1) Respiratory failure: Status: Acute Qualifiers: Chronicity: acute Respiratory failure complication: hypoxia Qualified Code(s): J96.01 - Acute respiratory failure with hypoxia (2) Sepsis: Status: Acute Qualifiers: Acute respiratory failure type: with hypoxia Sepsis acute organ dysfunction status: with acute organ dysfunction Sepsis type: sepsis due to unspecified organism Severe sepsis acute organ dysfunction type: acute respiratory failure Severe sepsis shock status: without septic shock Qualified Code(s): A41.9 - Sepsis, unspecified organism; R65.20 - Severe sepsis without septic shock; J96.01 - Acute respiratory failure with hypoxia (3) Pneumonia: Status: Acute Qualifiers: Laterality: left Lung location: lower lobe of lung Pneumonia type: due to unspecified organism Qualified Code(s): J18.9 - Pneumonia, unspecified organism (4) Lung mass: Status: Acute (5) Hemoptysis: Status: Acute (6) Acute and chronic respiratory failure with hypoxia: Status: Acute (7) Tobacco abuse: Status: Acute (8) COPD (chronic obstructive pulmonary disease): Status: Acute (9) HTN (hypertension): Status: Acute (10) Dyslipidemia: Status: Acute (11) Acute on chronic systolic (congestive) heart failure: Status: Acute (12) Severe malnutrition: Status: Acute (13) Acute blood loss anemia: Status: Acute (14) Hyponatremia: Status: Acute (15) Bronchiectasis: Status: Acute Acute Hypoxic Respiratory Failure Recurrent Hemptysis Acute Blood Loss Anemia Acute on Chronic Systolic Heart Failure ( EF 45-> 35%) Non- ST elevation [place] hx of CAD s/p PCI/LAD stent Left Upper Lobe Lung Mass suspicious for Malignancy Left mid/lower lobe consolidative pneumonia Chronic Obstructive pulmonary disease / Bronchiectasis Left-Sided Hydroureteronephrosis Hypertension Hypercholesterolemia Hx of Heavy Tobacco Abuse Severe Malnutrition Adult Failure To Thrive DVT ppx - SCDS Plan: Hospice was consulted Comfort care measure started All non-essential medication were discontinued Home hospice was being set up No further lab draw or diagnostic testing Morphine prn for pain Ativan PRN for anxiety Scopolamine patch to assist with secretions Yusuf placed for comfort Plan to discharge in AM on home hospice with comfort care measure. Attestations Medical Necessity Statement*: Jose Angel require additional day in hospital until home hospice set up arranged. Time Spent in Patient Care: Greater than 35 minutes (>than 50% of time spent in counselling and/or direct pt care on unit). Coding Level of Care Code Acute Rip And Groove Machine Operator for [facility] Fwd Diagnoses Respiratory failure J96.01 Chronicity: acute Respiratory failure complication: hypoxia Sepsis A41.9; R65.20; J96.01 Acute respiratory failure type: with hypoxia Sepsis acute organ dysfunction status: with acute organ dysfunction Sepsis type: sepsis due to unspecified organism Severe sepsis acute organ dysfunction type: acute respiratory failure Severe sepsis shock status: without septic shock Pneumonia J18.9 Laterality: left Lung location: lower lobe of lung Pneumonia type: due to unspecified organism Lung mass R91.8 Hemoptysis R04.2 Acute and chronic respiratory failure with hypoxia J96.21 Tobacco abuse Z72.0 COPD (chronic obstructive pulmonary disease) J44.9 HTN (hypertension) I10 Dyslipidemia E78.5 Acute on chronic systolic (congestive) heart failure I50.23 Severe malnutrition E43 Acute blood loss anemia D62 Hyponatremia E87.1 Bronchiectasis J47.9
[2020-10-24] MEDS: neomycin-poly-bacitracin oint 28 gm 1 APPLIC TOPICAL (17:10)
[2020-10-24] MEDS: bisacodyl 10 mg Supp PR (18:01)
[2020-10-25] VITALS (14 sets, daily range): BP systolic 130–145; BP diastolic 70–80; PULSE 74–97; RESP 6–27; O2SAT 89–100
--- NOTE | 2020-10-25 10:31 | PM.DCS ---
Discharge Providers Date of Admission: 10/22/20 06:01 Date of Discharge: October 25, 2020 Attending Provider at Admission: Alfred Fabian MD Attending Provider at Discharge: Matt Leung MD Primary Care Provider: Jude Boucher Diagnoses at Discharge Discharge Diagnosis (1) Respiratory failure: Status: Chronic Qualifiers: Chronicity: acute Respiratory failure complication: hypoxia Qualified Code(s): J96.01 - Acute respiratory failure with hypoxia (2) Sepsis: Status: Acute Qualifiers: Acute respiratory failure type: with hypoxia Sepsis acute organ dysfunction status: with acute organ dysfunction Sepsis type: sepsis due to unspecified organism Severe sepsis acute organ dysfunction type: acute respiratory failure Severe sepsis shock status: without septic shock Qualified Code(s): A41.9 - Sepsis, unspecified organism; R65.20 - Severe sepsis without septic shock; J96.01 - Acute respiratory failure with hypoxia (3) Pneumonia: Status: Resolved Qualifiers: Laterality: left Lung location: lower lobe of lung Pneumonia type: due to unspecified organism Qualified Code(s): J18.9 - Pneumonia, unspecified organism (4) Lung mass: Status: Acute (5) Hemoptysis: Status: Chronic (6) Acute and chronic respiratory failure with hypoxia: Status: Resolved (7) Tobacco abuse: Status: Chronic (8) COPD (chronic obstructive pulmonary disease): Status: Chronic (9) HTN (hypertension): Status: Acute (10) Dyslipidemia: Status: Acute (11) Acute on chronic systolic (congestive) heart failure: Status: Chronic (12) Severe malnutrition: Status: Acute (13) Acute blood loss anemia: Status: Chronic (14) Hyponatremia: Status: Resolved (15) Bronchiectasis: Status: Acute Reason for Visit Reason for Visit: nose bleed Hospital Course Hospital Course 75-year-old with a past medical history of alcoholism, coronary artery disease hx of stent with prior cardiac cath in 2016 during which time right coronary artery could not be accessed due to a large thrombus near the ostium of the vessel, prior LAD stents were noted and patent,LCx mild disease, wall motion abnormality was in RCA distribution, chronic systolic heart failure with last known EF of 45 % in 2016, hypertension, hypercholesterolemia, heavy tobacco abuse and chronic obstructive pulmonary disease who presented to the hospital with chest pain, hemptysis and epistaxis. This was assocated with increasing respiratory distress. His epistaxis had resolved prior to arrival. laboratory workup on arrival showed a WBC of 12.2, hemoglobin of 8.3, hematocrit of 26.4 and a platelet count of 466. Sodium 128, potassium 4.4, chloride 96, bicarb 23, BUN 6 and creatinine is 0.5. Lactic Acid of 2.1. AST of 16, ALT 11, alkaline phosphatase of 147. troponin T baseline of 93, 117 at 1:20 a.m., 6 hour at 155. ProBNP was elevated at 2593. COVID-19 rapid antigen. negative. D-dimer was elevated 1.25. Arterial blood gas showed a pH of 7.40, P CO2 of 34.6, PO2 of 69.5 and a bicarb of 21.4. This was on 15 L of O2 via simple mask.Chest x-ray showed central lobar emphysema, bronchiectasis and calcified granulomas bilaterally. Irregular areas of consolidation were seen left mid and lower hemithorax. Findings may represent pneumonia versus underlying soft tissue attenuation masses which could not be entirely excluded. CT angio of chest was then performed which showed severe centrilobular emphysema in addition to two soft tissue attenuation masses present in the left upper lobe suspicious for pulmonary malignancy. Diffuse reticular opacities were present within the left hemithorax likely representing combined pleural in peripheral scarring, ground-glass opacities were seen and lower hemithorax bilaterally representing pulmonary fibrosis versus superimposed basilar pneumonitis. Left-sided hydroureter and hydronephrosis is seen. In ER patient was given ceftriaxone 1g IV x 1, Azithromycin 500 mg IV x 1, Lasix 60 mg IVP x 1 and Nitropaste 0.5 inch topical. Blood culture were drawn. COVID 19 PCR was sent Upon admission to hospital his antibiotics were change to Vancomycin pharmacy to dose and zosyn 3.375g IV q8hr, Lasix 40 mg IVP q12hr and imdur 30 mg PO daily. He did not have any further episode of chest pain however was noted to have hypotensive episode of SBP < 70. Required 250cc bolus. Prior to this he was noted to have over 2L urine output since arrival. Had a lengthy discussion with patient with nurse at bedside regarding current active medical issues primary the possibility of pulmonary malignancy and NSTEMI. Advised him to further investigate this he would require biopsy of these lesions to obtain a definite diagnoses in addition to cardiology consult and catherization. He stated due to his age, frailty and quality of life he would not want to have biopsies and or any invasive procedures. Additionally code status was discussed which patient repeated no CPR or Life support/MV. Code status was changed to A.N.D Patient was alert and and oriented and verbalized understanding of this. In light of this pulmonary and cardiology were not consulted. On 10/22 patient slightly more confused. Continued to have significant episodes of hemoptysis with clots overnight. Discussed again with him regarding the next steps as noted above. He confirmed again his wishes against any invasive procedures. This was also discussed with patients , daughter and grand-daughter who states he has expressed this to them as well. Per Daughter Lashon ([phone]) patient had mentioned to her his wishes of DNI/DNR should his condition deteriorate as currently in the past. Family agreed with home Hospice consult and potential plan for implementation of comfort care services. Would like to obtain information regarding home hospice. In the interim requested to proceed with blood transfusion of 1 unit of PRBC due to a drop in hb to 7.4 and continuation IV fluid and antibiotics until hospice consult and visitations from family members. All members of family verbalized understanding of patients clinical condition and poor prognosis. On 10/24 patient and family signed on to home hospice/comfort care Physical Exam Narrative: EXAM NARRATIVE: Frail chronically ill appearing elderly, no distress. Const: COMMON NORMALS: patient oriented x3 HENMT: COMMON NORMALS: normocephalic, atraumatic, hearing grossly normal bilaterally and external ears normal HEAD & SCALP: normocephalic and atraumatic EXTERNAL EAR: Yes external ears normal Eye: COMMON NORMALS: no scleral icterus GENERAL EYE: appearance normal, both eyes and all related structures Chest: CHEST: Yes Symmetrical chest wall rise Resp: COMMON NORMALS: normal respiratory effort and clear to auscultation bilaterally EFFORT & INSPECTION: Yes symmetric chest movement AUSCULTATION: clear to auscultation bilaterally Cardio: COMMON NORMALS: regular rate, regular rhythm, S1 normal heart sound present, S2 normal heart sound present, No gallops present (Cardio), No murmurs present (Cardio), No rub (Cardio) and Peripheral pulses 2+ throughout RATE: regular rate RHYTHM: regular rhythm HEART SOUNDS: S1 normal heart sound present and S2 normal heart sound present PERIPHERAL PULSES: Peripheral pulses 2+ throughout GI: COMMON NORMALS: Normal to inspection, nondistended, normoactive bowel sounds present, Soft to palpation, non-tender, No hepatosplenomegaly present and no masses AUSCULTATION: Yes normoactive bowel sounds PALPATION: Yes Soft to palpation and Yes No hepatosplenomegaly present RECTAL EXAM: Yes deferred Extremity: COMMON NORMALS: no clubbing, cyanosis or edema and no pedal edema Neuro: COMMON NORMALS: patient oriented x3 Urinary Catheter Management^: Yusuf: Cath Placed During This Visit: yes Reason for Continuing Indwelling Catheter: Accurate Measurement of Urinary Output in Critically Ill Patients Urinary Catheter Date of Insertion: 10/22/20 Urinary Catheter Time of Insertion: 05:57 Discharge Data Data Completed and Pending: Completed Studies During Hospitalization Category Date Time Status CT angio chest PE protcl 13527 Urge nt Cat Scan 10/22/20 05:18 Completed XR chest 1V peri ble [id number] Routine Exams 10/23/20 07:00 Completed XR chest 1V peri ble [id number] Urgent Exams 10/22/20 04:39 Completed CV echo complete* [id number] Routine Ultrasound 10/22/20 07:23 Completed Pending at discharge Category Date Time Status Arterial Blood Ga s W/O Coox AM LABS Lab 10/23/20 04:00 Ordered Blood Culture Sta t Lab 10/22/20 04:40 Results Vitals: Last Vital Signs Temp 98.1 F 10/24/20 19:00 Pulse 88 10/25/20 08:40 Resp 16 10/25/20 08:40 BP 145/76 10/25/20 06:00 Pulse Ox 92 10/25/20 08:40 Discharge Plan Discharge Patient Disposition: Hospice - Home Condition: Stable Prescriptions: New bisacodyl 10 mg Suppository 10 mg OK DAILY PRN (Reason: Fecal Impaction) 30 Days RF: 0 Isopto Atropine 1 % Drops 3 drp sublingual Q4H PRN (Reason: Excessive Secretions, Rattling) 30 Days RF: 0 Isopto Tears 0.5 % Drops 2 drp eye-both Q2H PRN (Reason: Dry Eye(S)) 30 Days RF: 0 Fleet Glycerin (Adult) Suppository 1 supp OK DAILY PRN (Reason: Constipation) 30 Days RF: 0 Triple Antibiotic 3.5mg-400 unit- 5,000 unit/gram Ointment 1 applic topical BID 30 Days RF: 0 morphine concentrate 100 mg/5 mL (20 mg/mL) Solution 2 - 10 mg sublingual Q2H PRN (Reason: Moderate To Severe Pain or SOB) 30 Days RF: 0 lorazepam 2 mg/mL Solution 1 mg IVP Q2H PRN (Reason: Shortness Of Breath) 30 Days RF: 0 lorazepam 2 mg/mL Solution 1 - 2 mg IVP Q8H PRN (Reason: Anxiety, Agitation or Restless) 30 Days RF: 0 lorazepam 2 mg/mL Solution 2 mg IVP Q30M PRN (Reason: Seizures) 30 Days RF: 0 Blistex Medicated 0.6-0.5-1.1-0.5 % Ointment 1 applic topical Q2H PRN (Reason: Dry Lips) 30 Days RF: 0 ondansetron HCl (PF) 4 mg/2 mL Solution 4 mg IVP Q8H PRN (Reason: Nausea And Vomiting) 30 Days RF: 0 morphine 4 mg/mL Solution 2 - 10 mg IVP Q15M PRN (Reason: Moderate To Severe Pain or SOB) 30 Days RF: 0 Continued lisinopril 10 mg tablet 10 mg PO DAILY PRN (Reason: Blood Pressure) RF: 0 isosorbide mononitrate 30 mg tablet extended release 24 hr 30 mg PO DAILY Qty: 90 RF: 3 nitroglycerin [Nitrostat] 0.4 mg tablet, sublingual 0.4 mg SUBLINGUAL Q5M PRN (Reason: chest pain) 90 Days Qty: 25 RF: 3 diphenhydramine HCl 25 mg Capsule 25 mg PO DAILY@21 RF: 0 Ex-Lax Maximum Strength 25 mg Tablet 25 mg PO DAILY@21 RF: 0 Probiotic 15 billion cell Capsule, Sprinkle 1 cap PO DAILY@08 RF: 0 Discontinued aspirin 325 mg Tablet 325 mg PO BID@08,21 RF: 0 Discharge Orders: Discharge Order (Routine); Ordered 10/25/20 Ordered By: Matt Leung Referrals: [facility] – [place], [place] H[facility] ([facility]) [Outside] Jude Boucher [Primary Care Provider] - Discharge Diet: Usual diet Discharge Activity: Increase activity as tolerated Discharge Attestations Time Spent in Discharge Care*: greater than 30 min Specific Discharge Activities: educating patient, discussing with classification case manager/social workers/dc planners, documenting/other paperwork and evaluating patient/reviewing data Status at Discharge: Cognitive status at discharge: cognitively intact, Behavioral status at discharge: cooperative, Functional status at discharge: independent ambulation Overall status at discharge: patient is back to baseline Quality Metrics Clinical Quality Measures During this hospital stay, did patient experience: None Coding Level of Care Code 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 [employer] Diagnoses Respiratory failure J96.01 Chronicity: acute Respiratory failure complication: hypoxia Sepsis A41.9; R65.20; J96.01 Acute respiratory failure type: with hypoxia Sepsis acute organ dysfunction status: with acute organ dysfunction Sepsis type: sepsis due to unspecified organism Severe sepsis acute organ dysfunction type: acute respiratory failure Severe sepsis shock status: without septic shock Pneumonia J18.9 Laterality: left Lung location: lower lobe of lung Pneumonia type: due to unspecified organism Lung mass R91.8 Hemoptysis R04.2 Acute and chronic respiratory failure with hypoxia J96.21 Tobacco abuse Z72.0 COPD (chronic obstructive pulmonary disease) J44.9 HTN (hypertension) I10 Dyslipidemia E78.5 Acute on chronic systolic (congestive) heart failure I50.23 Severe malnutrition E43 Acute blood loss anemia D62 Hyponatremia E87.1 Bronchiectasis J47.9
[2020-10-25] MEDS: isosorbide mononitrate ER 30 mg Tablet PO (11:07)
[2020-10-25] MEDS: potassium chloride ER 20 mEq Tablet PO (11:07)
--- NOTE | 2020-10-25 11:52 | PC.SOCIAL ---
IMM Page 2 of IMM explained to patient's spouse by phone. Initialed, dated, and timed and placed in chart. Copy provided to patient's bedside.
--- NOTE | 2020-10-25 12:53 | PC.NURSE ---
Yusuf removed without any difficulty.
--- NOTE | 2020-10-25 13:46 | PC.NURSE ---
Pt IV discontinued. Cath tip intact. Pt tolerated well.
== END 2020-10-25 13:48 | disposition hospice, home (50) | DRG 871 ==
LOC: ER 06:04 → ICU 06:11
PROVIDERS: Hospitalist; Admitting Provider Internal Medicine; Emergency Provider Emergency Medicine; PCP Physician Assistant Medical; Visit Provider Internal Medicine
DX: A41.9 Sepsis, unspecified organism (principal); J18.9 Pneumonia, unspecified organism; J96.21 Acute and chronic respiratory failure with hypoxia; E43 Unspecified severe protein-calorie malnutrition; I50.23 Acute on chronic systolic (congestive) heart failure; E87.1 Hypo-osmolality and hyponatremia; R04.2 Hemoptysis; D62 Acute posthemorrhagic anemia; J44.0 Chronic obstructive pulmonary disease with (acute) lower respiratory infection; Z68.1 Body mass index [BMI] 19.9 or less, adult; R65.20 Severe sepsis without septic shock; Z51.5 Encounter for palliative care; Z66 Do not resuscitate; E78.5 Hyperlipidemia, unspecified; Z79.82 Long term (current) use of aspirin; Z95.5 Presence of coronary angioplasty implant and graft; I11.0 Hypertensive heart disease with heart failure; F17.210 Nicotine dependence, cigarettes, uncomplicated; I25.2 Old myocardial infarction
CPT/HCPCS: 12345; 36415; 36430; 36600; 51702; 71045; 71275; 80048; 80053; 80202; 82805; 83605; 83880; 84145; 84484; 85014; 85018; 85025; 85378; 86403; 86850; 86900; 86920; 87040; 87426; 87449; 87635; 93005; 93306; 94640; 96375; 99282; J0456; J0696; J1940; J2543; J2930; J3370; J7050; J7626; P9016; Q9967